=== PATIENT | male | born 1960 | race Caucasian/White ===

== ENCOUNTER 2020-03-03 13:20 | Emergency (ER) | payer OTHER, SELFPAY ==
[~2020-03-03] VITALS: Ht 162.6 cm; Wt 59.0 kg
[2020-03-03 13:29] VITALS: BP 131/83
--- NOTE | 2020-03-03 13:36 | NUR ---
WAIT AT TENT. VSS
--- NOTE | 2020-03-03 13:40 | NUR ---
C/O HEADACHE, COUGH,BODYACHE X 2 DAYS.MED HX: DENIES. AAOX4 WITH EVEN AND STEADY GAIT; LUNGS CLEAR BL; HR EVEN AND REGULAR; PT DENIES ANY CP, SOB AT THIS TIME; PATIENT STATES PAIN OF 5/10 AT THIS TIME
--- NOTE | 2020-03-03 14:45 | NUR ---
COVID & FLU SWAB DONE.
[2020-03-03 15:50] VITALS: BP 127/75
--- NOTE | 2020-03-03 15:50 | NUR ---
Patient discharged with v/s stable. Written and verbal after care instructions given and explained. Patient alert, oriented and verbalized understanding of instructions. Ambulatory with steady gait. All questions addressed prior to discharge. ID band removed. Patient advised to follow up with PMD. Rx of Ibu,promethazine, given. Patient educated on indication of medication including possible reaction and side effects. Opportunity to ask questions provided and answered.
--- NOTE | 2020-03-06 09:05 | NUR ---
POSITIVE COVID LAB REPORT RECEIVED. SENT RESULT COPY TO [facility].
== END 2020-03-03 15:50 | disposition home or self-care (01) ==
LOC: EDSEX 13:20 → EEVIPCON 13:20 → MED 13:20
DX: B34.9 Viral infection, unspecified (principal); Z20.828 Contact with and (suspected) exposure to other viral communicable diseases; R03.0 Elevated blood-pressure reading, without diagnosis of hypertension
CPT/HCPCS: 87804; 99283; C9803; U0003; 36415

== ENCOUNTER 2020-03-15 17:42 | Emergency (ER) | payer OTHER, SELFPAY ==
[~2020-03-15] VITALS: Ht 152.4 cm; Wt 59.0 kg
[2020-03-15 18:07] VITALS: BP 131/78
[2020-03-15 18:24] VITALS: BP 131/78
== END 2020-03-15 18:25 | disposition home or self-care (01) ==
LOC: MED 17:42
DX: U07.1 COVID-19 (principal); Z00.8 Encounter for other general examination
CPT/HCPCS: 99283; U0003

== ENCOUNTER 2020-03-30 18:39 | Emergency (ER) | payer OTHER, SELFPAY ==
[~2020-03-30] VITALS: Ht 162.6 cm; Wt 59.0 kg
[2020-03-30 19:20] VITALS: BP 131/82
--- NOTE | 2020-03-30 19:23 | NUR ---
PT IN TENT.
--- NOTE | 2020-03-30 19:50 | NUR ---
59 Y/O M PRESENTS TO ED TO BE RECHECKED ON COVID-19. PT STATES TESTING POSITIVE TWICE FOR COVID-19. LAST TEST WAS 03/15/20. PER PT, PT NEED TO BE CLEAR FROM COVID-19 BEFORE ABLE TO GO BACK TO WORK ON APRIL 04. PT IN TENT. MHX: SINDHUIES CLARK
--- NOTE | 2020-03-30 20:15 | NUR ---
Patient discharged with v/s stable. Written and verbal after care instructions given and explained. Patient verbalized understanding. Ambulatory with steady gait. All questions addressed prior to discharge. Advised to follow up with PMD.
--- NOTE | 2020-03-30 20:15 | NUR ---
COVID SWAB OBTAINED AND WALKED OVER TO LAB
[2020-03-30 20:22] VITALS: BP 131/82
--- NOTE | 2020-04-02 16:49 | NUR ---
Positive Covid results received from lab-copy sent to [facility]
== END 2020-03-30 20:15 | disposition home or self-care (01) ==
LOC: EEVIPCON 18:39 → MED 18:39
DX: U07.1 COVID-19 (principal); R50.9 Fever, unspecified
CPT/HCPCS: 99283; U0003